=== PATIENT | male | born 1950 | race Caucasian/White ===

== ENCOUNTER 2019-04-10 03:18 | Inpatient (IN) | payer MEDICARE, OTHER ==
[~2019-04-10] VITALS: Ht 175.3 cm; Wt 90.3 kg
[2019-04-10] MEDS ORDERED: GLUCOPHAGE1000 MG PO (03:36)
[2019-04-10] MEDS ORDERED: EFFEXOR XR150 MG PO (03:37)
[2019-04-10] MEDS ORDERED: PRAVACHOL40 MG PO (03:37)
[2019-04-10] MEDS ORDERED: VENLAFAXINE HCL75 MG PO (03:37)
[2019-04-10] MEDS ORDERED: GLIPIZIDE10 MG PO (03:37)
--- NOTE | 2019-04-10 07:45 | NUR ---
PATIENT SHIFT REPORT RECEIVED FROM F[employer]ADE BULLDOZER OPERATOR RN. PT IS RESTING IN BED AT THIS TIME. PTS EYES ARE SWELLED SHUT. PT CAN SEE IF HE USES HIS FINGERS TO OPEN HIS EYES. PT HAS MINIMAL PAIN WHILE RESTING,BUT GOES UP TO ABOUT A 5 WITH MOVEMENT. MD ZAMARRIPA HERE PUTTING ORDERS IN. WILL CONTINUE TO CLOSELY MONITOR.
--- NOTE | 2019-04-10 09:00 | NUR ---
PT ASSESSMENT COMPLETED. MEDICATIONS ADMINISTERED. BREATH SOUNDS CLEAR. BILATERAL CHEST TUBES IN PLACE AT -20 SUCTION. MINIMAL BLOOD IN CHEST TUB, NO AIR LEAK NOTED. PT HAS CREPITUS FROM CHEST, SHOULDERS, BILATERAL ARMS, HANDS NECK, AND FACE THAT PATIENT ARRIVED FROM THE ED WITH. PT STATES PAIN IS ABOUT A 2/10 WHILE AT REST AND SHOOTS UP TO A 6/10 WITH MOVEMENT. GAVE PATIENT A BUTTON CALL LIGHT TO USE EASIER SINCE HIS EYES ARE SWOLLEN SHUT. ASSISTED PATIENT TO STAND AT THE BEDSIDE AND USE URINAL. PT DENIES AY OTHER NEEDS AT THIS TIME. WILL COTNINUE TO CLOSELY MONITOR.
--- NOTE | 2019-04-10 10:30 | NUR ---
PT RESTING IN BED LISTENING TO THE TV. PT HAS CALL LIGHT IN REACH. PT DENIES ANY OTHER NEEDS AT THIS TIME. WILL CONTINUE TO CLOSELY MONITOR.
--- NOTE | 2019-04-10 11:12 | NUR ---
ASSISTED PATIENT UP TO THE CHAIR. PT REQUESTED A COOL COMPRESS FOR HIS EYES. PT RECLINING IN THE CHAIR AT THIS TIME, PT TOLERATED AMBULATION WELL. WILL CONTINUE TO CLOSELY MONITOR.
--- NOTE | 2019-04-10 11:45 | NUR ---
PT HAVING INCREASED PAIN. ADMINISTERED PRN DILAUDID. PT REMAINS IN THE CHAIR AT THIS TIME. WILL CONTINUE TO CLOSELY MONITOR.
--- NOTE | 2019-04-10 12:28 | NUR ---
PT ASSISTED BACK TO BED. GAVE PRN NORCO FOR PAIN 04/02. WILL MONITOR EFFECTIVENESS. PT STATES "I AM JUST MISERABLE, FEELS LIKE THE DAYS ARE JUST DRAGGIN ON". PT HAS LUNCH HE IS WORKING ON AT THIS TIME. WILL CONTINUE TO CLOSELY MONITOR.
[2019-04-10] MEDS ORDERED: GLUCOTROL XL10 MG PO (13:14)
[2019-04-10] MEDS ORDERED: VENLAFAXINE HCL75 M1 PO ×2 (13:15→13:16)
--- NOTE | 2019-04-10 14:00 | NUR ---
CALLED MD ZAMARRIPA D/T PATIENTS PAIN CONTROL. PER MD ZAMARRIPA CHANGE PATIENTS PAIN MEDICATION TO NORCO 10MG/325 AND GIVE 1-2 TABS WITH ORDERS TO GIVE ONE TAB AT THIS TIME. UPDATED THAT DILAUDID MADE PATIENT FEEL LOOPY, DC DILAUDID AND MAY GIVE MORPHINE 2-6MG FOR BREAKTHROUGH/SEVERES PAIN. WILL CALL MD ZAMARRIPA BACK IF PAIN CONTROL IS NOT IMPROVED WITH NEW ORDERS. NO OTHER ISSUES AT THIS TIME. WILL CONTINUE TO CLOSELY MONITOR.
--- NOTE | 2019-04-10 14:43 | NUR ---
ASSISTED PATIENT UP TO THE CHAIR WITH 2 PERSON ASSIST TO MANAGE TUBES AND CORDS. PATIENT IS STEADY ON HIS FEET. PLACED PILLOWS UNDER PATIENTS ARMS. CHANGED BED OUT FOR A DIFFERENT BED. PATIENT STATES BED IS HURTING HIS BACK AND HE HAS A DIFFICULT TIME MOVING IN THE BED. CALL LIGHT IN HAND. PATIENT EYES REMAIN SWOLLEN SHUT. PATIENT IS FRUSTRATED BECAUSE HE CANT GET COMFORTABLE AND HE CANT SEE. PATIENT WANTS TO TALK TO HIS , BUT STAFF ARE UNABLE TO CONTACT HER. CONTACTED PATIENTS SON, WHO IS WORKING ON TRYING TO CONTACT HIS MOM. WILL CONTINUE TO CLOSELY MONITOR. PATIENT IS LISTENING TO THE TV AT THIS TIME.
--- NOTE | 2019-04-10 15:55 | NUR ---
PATIENTS AT BEDSIDE AND UPDATED REGUARDING PLAN OF CARE AND HOW PATIENT IS DOING. PATIENT DENIES ANY OTHER NEEDS AT THIS TIME. WILL CONTINUE TO CLOSELY MONITOR. PATIENT IS NOW RESTING AT THIS TIME.
--- NOTE | 2019-04-10 16:15 | NUR ---
ASSISTED PATIENT BACK TO BED. PT TOELRATED WELL. PT NOW RESTING IN BED. PT DENIES NEEDING TO URINATE AT THIS TIME. ASSESSMENT COMPLETED AND NO CHANGES NOTED FROM PRIOR ASSESSMENTS. CALL LIGHT IN REACH. AT BEDSIDE. CHEST TUBE SITES CHECKED, WITH NO ISSUES NOTED. WILL CONTINUE TO CLOSELY MONITOR.
--- NOTE | 2019-04-10 17:53 | NUR ---
ASSISTED PATIENT BACK UP TO THE CHAIR. PT TOLERATED MUCH BETTER THIS EVENING. PATIENTS PAIN IS 4/10. PATIENT STATES PAIN IS DOING MUCH BETTER. WIPPED PATIENTS EYES AND PATIENTS EYES ARE OPEN A LITTLE BIT MORE THIS EVENING. CALL LIGHT IN REACH. FAMILY AT THE BEDSIDE. DINNER FINISHED. WILL CONTINUE TO CLOSELY MONITOR.
--- NOTE | 2019-04-10 19:27 | NUR ---
PT REPORT RECIEVED, CAER ASSUMED AT THIS TIME. PT SITTING UP IN RECLINER AT THIS TIME. IN ROOM. ASSISTED PT FROM CHAIR TO BED. PT IN 8 PAIN AT THIS TIME. PAIN MEDICATION PROVIDED. DISCUSSED PLAN OF CARE WITH PT AND AT THIS TIME. CALL LIGHT WITHIN REACH. IV FLUIDS INFUSING. NO FURTHER NEEDS AT THIS TIME.
--- NOTE | 2019-04-10 22:12 | NUR ---
PT ASLEEP IN BED. BREATHING EVEN AND UNLABORED.
--- NOTE | 2019-04-10 22:40 | NUR ---
RESPONDED TO PATIENT CALL LIGHT, PT REPORTED INCREASED PAIN. ASSISTED PT TO RECLINER, PAIN MEDICATION GIVEN. CALL LIGHT WITHIN REACH. NO FURTHER REQUESTS AT THIS TIME.
--- NOTE | 2019-04-11 00:10 | NUR ---
PT CONFUSED, TRYING TO STAND WITHOUT ASSISTANCE. STATES " I FEEL LIKE I AM WASHING DISHES" ALSO REPORTS FEELING "ITCHY EVERYWHERE. REPORTS PAIN IS STILL 8/10 ON RIGHT SIDE OF CHEST. DR. ZAMARRIPA CALLED, ORDERS RECIEVED AT THIS TIME.
--- NOTE | 2019-04-11 00:59 | NUR ---
PT IS RESTING IN STRETCHER, STATES HIS ITCHING AND ANXIETY HAVE DECREASED AT THIS TIME.
--- NOTE | 2019-04-11 02:31 | NUR ---
PT RESTING WITH EYES CLOSED, BREATHING EVEN AND UNLABORED. SATURATIONS AT 95 PERCENT ON 4 L NC.
--- NOTE | 2019-04-11 04:30 | NUR ---
IN TO DO PATIENT ASSESSMENT. PT HAD INCONTINENT EPISODE IN BED. ASSISTED TO A STANDING POSITION. PAIN INCREASED TO 8/10 WITH POSITION CHANGE. RIGHT CHEST TUBE DRESSING COVERED IN A MODERATE AMOUNT OF BLOOD. CHANGED AT THIS TIME. PT HAS WHEEZING OVER ALL LUNG LESLIE, WORSE IN THE RIGHT. BACK IN BED, CALL LIGHT WITHIN REACH. NO FURTHER NEEDS A THIS TIME.
--- NOTE | 2019-04-11 06:02 | NUR ---
PT SLEEPING, BREATHING EVEN AND UNLABORED. CALL LIGHT WITHIN REACH.
--- NOTE | 2019-04-11 07:41 | NUR ---
PT SITTING AT THE EDGE OF THE BED AT THIS TIME, CHEST TUBES INPLACE AND O2 AT 4'S NC. PT IS RESTLESS AT THIS TIME. ALLOWING HIM TO SIT AND MOVE ABOUT WITH LIMITED SPACE AT THIS TIME. PT IS TOLERATING THE HOSPITAL ROUTINE AT HIS TIME. EYES REMAIN SLOWWEN, BUT IS ABLE TO HOLD OPEN ONE EYE AT THE TIME AND IS ABLE TO SEE AT TIMES FOR A FEW MINUTES.
--- NOTE | 2019-04-11 08:10 | NUR ---
SPOKE WITH PATIENT IN ROOM. PATIENT SITTING AT SIDE OF BED EATING BREAKFAST. EYES VERY SWOLLEN, PATIENT STATES HE CAN SEE A LITTLE OUT OF LEFT EYE. IS ABLE TO FEED SELF. PATIENT LIVES WITH , IS RETIRED AND NORMALLY DRIVES. PATIENT INTENDS TO RETURN HOME AT DISCHARGE. PATIENT HAS NO DME AT HOME. DISCUSSED DISCHARGE AND POSSIBLE NEEDS. DISCUSSED HE WILL NEED FOLLOWUP WITH PCP AND HE STATES HIS WILL BE ABLE TO DRIVE. PATIENT OPEN TO ANY HELP NEEDED AT DISCHARGE. DISCUSSED FOR HIM TO UNDERSTAND ALL DIAGNOSIS, TESTS, MEDICATIONS AND SIDE EFFECTS. HE STATES HE UNDERSTANDS SO FAR. QUESTIONS ANSWERED. WILL CONTINUE TO FOLLOW.
--- NOTE | 2019-04-11 08:33 | NUR ---
PT BACK TO BED AT THIS TIME, TWO PERSONA ASSISTANCE NEEDED. PT STOOD AT THE SIDE OF THE BED BEFORE GETTING BACK INTO BED. LINE CHANGED AT THIS TIME. PT HAS DENTURES CLEANED AND BACK INTO HIS MOUTH.
--- NOTE | 2019-04-11 10:28 | NUR ---
PT SITTING AT THE EDGE OF THE BED AT THIS TIME, MEDICATED WITH 10MG/325MG NORCO PO AT THIS TIME. PT IS TAKING PO WELL. SWELLING IN FACE STILL REMAINS THE SAME.
--- NOTE | 2019-04-11 10:45 | NUR ---
PT BACK TO BED AT THIS TIME, CHEST TUBES X2 INPLACE AND DRESSING INTACK. PT ON O2 VIA NC WITH SPO2 95%. SIDERAILS X 2 AND CALL LIGHT WITHIN REACH.
--- NOTE | 2019-04-11 11:20 | NUR ---
FAMILY INTO VISIT AT THIS TIME. PT MOVED TO SITTING AT THE BEDSIDE.
--- NOTE | 2019-04-11 11:39 | NUR ---
PT UP TO THE CHAIR AT THIS TIME, PT USED THE URINAL AND VOIDED 300MLS OF LAWRENCE URINE. FAMILY REMAIN AT THE BEDSIDE.
--- NOTE | 2019-04-11 12:49 | NUR ---
PT BACK TO BED AT THIS TIME, TURNED TO HIS RIGHT SIDE SOME WITH PILLOWS BEHIND HIS BACK AND UNDER IS ARMS. REMAINS AT THE BEDSIDE.
--- NOTE | 2019-04-11 13:52 | NUR ---
PT AWARE OF MY PRESENCE, AT BS. PTS' EYES SWOLLEN MOSTLY SHUT DUE TO CONDITION HE IS FIGHTING. LUNGS SLOWLY IMPROVING. SEEMED VERY INVOLVED IN TV SHOW. EXTENDED A BLESSING, WILL FOLLOW NEEDED
--- NOTE | 2019-04-11 13:54 | NUR ---
PT PLACED ON TELE#1 DUE TO HE WILL BE TRASFERED TO THE M/S UNIT THIS AFTERNOON. MEDICATED WITH 10MG/325 NORCO AT THIS TIME.
--- NOTE | 2019-04-11 14:00 | NUR ---
REPORT GIVEN TO KHALIDA MICHELLE FACE TO FACE IN ROOM 128. ALL QUESTIONS ANSWERED AT THIS ITME. PT TRANSFERED TO ROOM 110 IN HIS BED WITH ALL PERSONAL BELONGINGS. PT PRESENT DURING THIS TRANSFERED. PT WAS PLACED ON TELE#1.
--- NOTE | 2019-04-11 14:40 | NUR ---
IT DOES NOT APPEAR THAT ANY OUTPUT HAS BEEN DOCUMENTED ON PATIENT SO I AM DOCUMENTING WHAT HE HAS OF NOW AND IT WILL BE HIS TOTAL OUTPUT FOR CHEST TUBES. HIS RIGHT CHEST TUBE HAD 54 AND HIS LEFT CHEST TUBE HAD 46 OUT.
--- NOTE | 2019-04-11 14:59 | NUR ---
REPORT RECEIVED AT BEDSIDE IN CCU, PT TRANSFERRED VIA BED TO [facility], WELL TOLERATED. REMAINS AT BEDSIDE. HAND HELD CALL LIGHT IN PT LAP, HE IS ABLE TO INDICATE WHICH BUTTON TO USE FOR NURSE NOTIFICATION. RESTING IN BED COOL CLOTH TO EYES. PT DENIES PAIN, STATES "IT REALLY ONLY HURTS WITH MOVEMENT AND DEEP BREATHS". EDUCATION PROVIDED. PRESSURE RELIEF MEASURES DISCUSSED WELL PT DEMONSTRATES ABILITY TO SHIFT IN HIS BED AND RELIEVE PRESSURE TO ONE SIDE, AGREES TO DO THIS FREQUENTLY. ICE WATER IN REACH OTHER NEEDS OR QUESTIONS DENIED
--- NOTE | 2019-04-11 15:35 | NUR ---
SPOKE TO PT ABOUT PLANS TO INCREASE ACTIVITY, UP IN THE CHAIR AND AMBULATING THE TINEO HE AGREES UP TO THE CHAIR WOULD BE GOOD. SBA TO RECLINER PT STATES HE IS COMFORTABLE AND WILL SIT UP FOR AWHILE. CHEST TUBES SECURE IN PLACE, TUBING AT BED LEVEL, NO S/S OF COMPROMISE. 02 AT 2LPM SATS 97%
--- NOTE | 2019-04-11 17:46 | NUR ---
PT TRANSFERRED FROM CCU AFTER LUNCH. VERY PAINFUL RIGHT SIDE RECEIVES TORDOL AND NORCO. [facility]. TELE #! SINUS. O2 2L PER NC SATS RUNNING MID 90'S PULSE OX IN PLACE. BILAT CHEST TUBES IN PLACE. CLIENT A BIT IMPULSIVE WILL ASK TO ASSIST HIM UP INSTEAD OF CALLING RN PULLING IV OUT
--- NOTE | 2019-04-11 19:00 | NUR ---
CHARGE NURSE REPORT FROM LUZ ELENA. PT IN BED, IN CHAIR. NO NEEDS.
--- NOTE | 2019-04-11 19:05 | NUR ---
BEDSIDE REPORT RECEIVED FROM VIVIANA GAXIOLA. SPO2 94%, HR 88 ON 2L OXYGEN BY NC. SCDS ON. PT DENIES PAIN AT REST, STATES "ALMOST NO PAIN, UNLESS I MOVE A LOT". HR NSR ON TELE 1. CALL LIGHT IN REACH. AT BEDSIDE. NO REQUESTS AT THIS TIME.
--- NOTE | 2019-04-11 19:47 | NUR ---
TO NURSES STATION. 1PA WITH FWW TO TRANSFER TO CHAIR. CHEST TUBES TO WALL SUCTION. CALL LIGHT IN REACH. DIET COKE PROVIDED. NO ADDITIONAL REQUESTS. IVF INFUSING WNL ORDERED.
--- NOTE | 2019-04-11 20:48 | NUR ---
PT ASSESSMENT COMPLETE. RT MACIEJ IN ROOM. CREPITUS NOTED BUE, BACK, CHEST. PT ABLE TO OPEN EYES MORE THAN PREVIOUS SHIFT PER PT. EDEMA NOTED ON FACE. PT ORIENTED X 4. SBA W FWW AND 2PA WITH CHEST TUBES TO RESTROOM FOR VOIDE. PT TOLERATED WELL. ORAL CARE COMPLETE. BACK TO CHAIR. CHAIR ALARM ON.
--- NOTE | 2019-04-11 21:19 | NUR ---
PT ATTEMPTING TO STAND FROM CHAIR. SBA, FWW WITH [address]UB[address], NO CONTINUOUS BUBBLING NOTING. BACK TO BED. SCDS ON. IVF INFUSING WNL ORDERED. 2L OXYGEN BY NC IN PLACE. BED ALARM ON. CALL LIGHT ON CHEST.
--- NOTE | 2019-04-11 22:45 | NUR ---
CHECKED ON PT. RESTING IN BED WITH EYES CLOSED. BREATHING EQUAL AND NON-LABORED. SPO2 WNL ON 2L OXYGEN BY NC. SCDS ON. CHEST TUBES IN PLACE BILATERALLY. LIGHTS OFF IN ROOM. BED ALARM ON.
--- NOTE | 2019-04-11 23:34 | NUR ---
PATIENT IS RESTING IN BED WITH EYES CLOSED, RR 17. CALL LIGHT IN REACH.
--- NOTE | 2019-04-12 00:33 | NUR ---
PT RESTING IN BED ASLEEP. PT REMOVED OXYGEN, SPO2 88%, OXYGEN REAPPLIED. PT AWAKENS TO VOICE THEN BACK TO SLEEP. SCDS ON. CHEST TUBES IN PLACE TO SUCTION, NO CONT. BUBBLING NOTED. IVF INFUSING WNL. BED ALARM ON. CALL LIGHT IN REACH.
--- NOTE | 2019-04-12 03:35 | NUR ---
PT CALLING OUT, PRN PAIN MEDICATION ADMINISTERED FOR 8/10 RIGHT RIB PAIN. 2PA SBA WITH FWW TO CHAIR. CREPITUS PALPATED BILATERALLY ARMS. NO CREPITUS ON CHEST. EDEMA IMPROVED IN FACE, NECK. CRACKLES AUSCULTATED BILATERALLY UPPER LOBES. SPO2 WNL ON 2L OXYGEN BY NC. CHEST TUBES INTACT TO WALL SUCTION, NO CONT. BUBBLING NOTED. RT MACIEJ IN ROOM TO ASSESS PT. CALL LIGHT IN REACH. CHAIR ALARM ON. ICE WATER PROVIDED.
--- NOTE | 2019-04-12 04:47 | NUR ---
CALL LIGHT ANSWERED. SBA TO RESTROOM W FWW AND BACK TO CHAIR. UNMEASURED VOID ON FLOOR CLEANED. VSS. IVF INFUSING WNL ORDERED. CHEST TUBES IN PLACE TO WALL SUCTION. CHAIR ALARM ON. CALL LIGHT IN LAP.
--- NOTE | 2019-04-12 04:54 | NUR ---
V/S AND I&O TAKEN AND RECORDED. 2 PA HELPED PATIENT TO THE BATHROOM AND BACK TO CHAIR. CHAIR ALARM ON. CALL LIGHT IN REACH.
--- NOTE | 2019-04-12 05:39 | NUR ---
2 PA PATIENT TRANSFER FROM CHAIR TO BED. SCD AND CPOX ARE BACK ON. BED ALARM ON. CALL LIGHT IN REACH.
--- NOTE | 2019-04-12 05:42 | NUR ---
CALL LIGHT ANSWERED. 2PA WITH FWW TO TRANSFER BACK TO BED FROM CHAIR. SCDS ON. IVF INFUSING WNL ORDERED. CHEST TUBES IN PLACE. CALL LIGHT IN REACH. BED ALARM ON.
--- NOTE | 2019-04-12 05:54 | NUR ---
CREPITUS IMPROVED THIS SHIFT, NOTED IN BUE, LEFT CHEST TUBE SITE. CRACKLES AUSCULTATED BILATERALLY UPPER LOBES. SATURATIONS WNL ON 2L OXYGEN BY NC THROUGHOUT SHIFT. CHEST TUBES BILATERALLY TO WALL SUCTION, NO CONT. BUBBLING NOTED. AMBULATING WITH 2 PERSON SBA FOR TUBE MANAGEMENT WITH FWW TO RESTROOM FOR QS VOIDS. SCDS IN PLACE WHILE IN BED. UP TO CHAIR THIS SHIFT. IVF INFUSING WNL ORDERED. PRN NORCO, TORADOL FOR PAIN MANAGEMENT. IMPULSIVE AT TIMES, BED ALARM AND CHAIR ALARM IN PLACE. ALERT AND ORIENTED X 4. 40 MLS SS DRAINGE FROM LEFT CHEST TUBE, 9 ML SS DRAINAGE RIGHT CHEST TUBE.
--- NOTE | 2019-04-12 06:52 | NUR ---
MD IN ROOM AFTER CHEST X RAY ASSESSING PT. PRN TORADOL ADMINISTERED FOR 7/10 PAIN IN RIBS. CALL LIGHT IN REACH. BED ALARM ON. IVF RATE TITRATED PER ORDERS INFUSING WNL. SCDS ON.
--- NOTE | 2019-04-12 07:36 | NUR ---
PT SLEEPING AT THIS TIME, RESP EVEN AND NON LABORED. BILAT CHEST TUBES INTACT, PATENT AND DRAINING APPROP; BOTH ARE TO WALL SUCTION AT 90MMHG. DRESSINGS ARE INTACT TO CHEST WALL, NO NOTABLE DRAINAGE AT DRESSING SITE(s). IV INFUSING TKO @30ML/HR. CREPITUS NOTED TO LEFT/RIGHT ARMS. CPOX INTACT, 02 SAT LEVEL IS 96% ON 2 L OXYGEN. PT SLEEPING SOUNDLY, NO NOTABLE DISTRESS AT THIS TIME. BED ALARM INTACT. CLOSE TO RN STATION FOR FREQUENT MONITORING.
--- NOTE | 2019-04-12 08:57 | NUR ---
PT RESTING IN BED WITH EYES CLOSED, RESPONDS TO VERBAL STIMULI. PT STATES PAIN IN RIGHT CHEST, NONPRODUCTIVE COUGH NOTED. PT ENCOURAGED TO BRACE ABD WITH PILLOW. PT SLOWLY EATING BREAKFAST. BED ALARM IN PLACE, CALL LIGHT IN REACH.
--- NOTE | 2019-04-12 09:16 | NUR ---
Overheard staff stating pt choking on food. Went in to see pt immediately, pt found choking for several seconds, then pt able to independently clear own airwar. Pt spit eggs out from mouth. Pt transitioned to chair, breathing returned to resp even and non labored. Oxygen saturation 97% on ra post choking event. Dr. Hernandez aware of choking event. New order obtained to change diet to soft, bite size diet.
--- NOTE | 2019-04-12 11:04 | NUR ---
PT RESTING IN BED WATCHING TV WITH FAMILY AT BEDSIDE. BED ALARM IN PLACE, CALL LIGHT WITHIN REACH. PT HAS 2 L NC, SATS 95% WITH CONT PULSE OXIMETER IN PLACE.
--- NOTE | 2019-04-12 11:27 | NUR ---
Patient was transfered to Chair this morning after Breakfast, around 11 am the patient wanted back in bed 3PA to get him back into bed. Call light in reach, Fresh water given.
--- NOTE | 2019-04-12 13:29 | NUR ---
PT RESTING IN BED, WATCHING TV WITH HIS AT . HE RESPONDS TO VOICE COMMANDS WELL, AND SAYS HE IS FEELING BETTER. HIS ALWAYS SEEMS TO BE TUNED INTO TV OR HER PHONE, MAKING IT DIFFICULT TO CONNECT WITH HER. GAVE A BLESSING, LEFT A G.POST IN RM. WILL FOLLOW NEEDED.
--- NOTE | 2019-04-12 15:57 | NUR ---
SEE NURSE NOTE FROM THIS AM, PROVIDER AWARE OF PT CHOKING ON BREAKFAST DIET REASSESSED. PT TOLERATING SOFT BITE SIZED MEALS.
--- NOTE | 2019-04-12 15:58 | NUR ---
PT RESTING IN BEDSIDE CHAIR. PT DROWSY, AROUSES TO VERBAL STIMULATION. PT STATES PAIN "COMFORTABLE." FAMILY AT BEDSIDE, CALL LIGHT WITHIN REACH.
--- NOTE | 2019-04-12 17:59 | NUR ---
ADMIN NORCO 10/325MG PO FOR REPORTS OF 7/10 LEFT RIB PAIN.
--- NOTE | 2019-04-12 18:22 | NUR ---
BILAT CHEST TUBES TO WALL SUCTION. LEFT SIDE HAS AIR LEAK +2 BUBBLING, DR. ZAMARRIPA AWARE. GENERALIZED CREPITUS NOTED. TELE 1, NSR. PT CHOKED ON SCRAMBLED EGGS THIS AM, MONITOR FOR ASPIRATION RISK. DIET CHANGED TO SOFT BITE SIZED, TOLERATING WELL. LR@30/HR TKO. 2 L O2 NC, CPOX. CBG'S BID, ORAL MEDICATION. PAIN WELL MANAGED TODAY.
--- NOTE | 2019-04-12 19:10 | NUR ---
BEDSIDE REPORT RECEIVED FROM VIVIANA GIBBS. PT RESTING IN BED. SPO2 96% ON 2L OXYGEN BY NC. IVF INFUSING WNL. SCDS ON. BED ALARM IN PLACE. CHEST TUBES IN PLACE TO WALL SUCTION. NO CONT. BUBBLING NOTED. NO REQUESTS AT THIS TIME.
--- NOTE | 2019-04-12 20:14 | NUR ---
PT ASSESSMENT COMPLETE. CREPITUS BILATERALLY ARMS HANDS, FACE, NECK. CRACKLES AUSCULTATED BILATERALLY LOWER LUNGS, COUGHING AND IS USE DEMONSTRATED BY PT, LUNGS CLEARING WITH SOME CREPITUS AUSCULTATED. CHEST TUBES TO 90 MMHG, NO CONT. BUBBLING NOTED, SMALL AMT BUBBLING LEFT CHEST TUBE WITH INSPIRATION. UNCHANGED FROM PREVIOUS SHIFT. PT RATES PAIN 3/10 IN BACK ON RIGHT SIDE. DECLINES SCDS AT THIS TIME. 2L OXYGEN BY AK IN PLACE. CBG 357 NOTIFIED. ORDERS FOR DIABETIC CONSULT AND BLOOD SUGAR CHECKS [facility] REPEATED BACK. EDUCATION PROVIDED TO PT REGARDING DIET. IV FLUSHED WNL. IVF INFUSING ORDERED. BED ALARM ON. CALL LIGHT IN REACH. PT DENIES TOILETING NEEDS.
--- NOTE | 2019-04-12 20:42 | NUR ---
CALL LIGHT ANSWERED. 2PA WITH RT MACIEJ TO RESTROOM FOR VOID. ORAL CARE COMPLETE BY PT. PT SHAVED FACE. BACK IN BED. CALL LIGHT IN REACH. BED ALARM ON. IVF INFUSING WNL ORDERED. LIGHTS OFF IN ROOM. 2L OXYGEN BY NC IN PLACE. CPOX ON. TELE [address] HR 85 NSR.
--- NOTE | 2019-04-12 21:50 | NUR ---
CALL LIGHT ANSWERED. 2PA FROM CHAIR TO BED. CHEST TUBES TO WALL SUCTION IN PLACE. PT RATES PAIN 5/10 W AMBULATION. PRN PAIN MEDICATION ADMINISTERED. PT DECLINES SCDS. IVF INFUSING WNL ORDERED. CPOX IN PLACE, SPO2 WNL ON 2L O2 BY NC. BED ALARM ON.
--- NOTE | 2019-04-12 21:50 | NUR ---
2 PA PATIENT BACK TO BED.
--- NOTE | 2019-04-13 00:08 | NUR ---
CHECKED ON PT. RESTING IN BED WITH EYES CLOSED. AWAKENS TO VOICE. OXYGEN REAPPLIED, SPO2 WNL ON 2L OXYGEN BY NC. BED ALARM ON.
--- NOTE | 2019-04-13 01:15 | NUR ---
CALL LIGHT ANSWERED. 2PA WITH FWW TO RESTROOM FOR VOID AND BACK TO BED. ASSESSMENT COMPLETE. PT RATES PAIN 6/10 "DULL ACHE" BILATERALLY IN RIBS. PRN TORADOL AND TYLENOL ADMINISTERED. CREPITUS PALPATED UPPER BODY, FACE, ARMS BILATERALLY. FINE CRACKLES THROUGHOUT LUNG LOBES. PT ENCOURAGED TO DEEP BREATHE. NO NEW DRAINAGE AT CHEST TUBE INSERTION SITES. CHEST TUBES TO WALL SUCTION. DIET COKE PROVIDED. CALL LIGHT IN REACH. BED ALARM ON.
--- NOTE | 2019-04-13 02:36 | NUR ---
CALL LIGHT ANSWERED, PT UNABLE TO SLEEP D/T PAIN IN LEFT SIDE OF CHEST, ABD. PRN NORCO ADMINSITERED AT THIS TIME, RATES PAIN 7/10 "DULL ACHING PAIN". CALL LIGHT IN REACH. BED ALARM ON.
--- NOTE | 2019-04-13 03:45 | NUR ---
PT AMBULATING LAPS AROUND HALLWAY WITH 1PA MAKENZIE MUELLER. CHEST TUBES IN PLACE. PT TOLERATING WELL.
--- NOTE | 2019-04-13 03:57 | NUR ---
PT BACK IN ROOM FROM WALK. UP TO CHAIR. IV FLUSHED, IVF INFUSING WNL ORDERED. MODERATE SEROUS DRAINAGE FROM LEFT CHEST TUBE NOTED. TAPE REINFORCED ON LEFT CHEST TUBING, NO CONT. BUBBLING NOTED, TO 90 MMHG WALL SUCTION. 2L OXYGEN BY NC IN PLACE. CHAIR ALARM ON. CALL LIGHT IN LAP.
--- NOTE | 2019-04-13 03:59 | NUR ---
ASSISTED TO THE BATHROOM. ACCOMPANIED TO WALK AROUND NURSES STATION X2. PATIENT IS BACK IN CHAIR. ALARM ON.
--- NOTE | 2019-04-13 04:44 | NUR ---
PT CALLING OUT ASKING FOR PAIN PILL. IN PT ROOM, PT RATES PAIN 3/10. EDUCATED ON PRN PAIN MEDICATION SCHEDULE. DENIES NEED FOR PAIN MEDICATIONS STATES "I'M JUST BORED AND DON'T WANT TO GET BEHIND". PT GIVEN NEWSPAPER AND MAGAZINE. CHEST TUBES IN PLACE TO WALL SUCTION. SPO2 WNL ON RA. CALL LIGHT IN REACH. CHAIR ALARM ON.
--- NOTE | 2019-04-13 05:10 | NUR ---
CHAIR ALARM SOUDING, PT REQUESTING TO STAND TO STRETCH LEGS. STATES "I'M GOING CRAZY IN HERE". SBA TO STAND WITH FWW. VSS AT THIS TIME. BACK IN CHAIR AFTER STANDING FOR A FEW MINUTES. READING NEWSPAPER. NO REQUESTS AT THIS TIME. ALARM IN PLACE. CALL LIGHT IN REACH.
--- NOTE | 2019-04-13 05:11 | NUR ---
CHEST TUBES IN PLACE TO WALL SUCTION. MODERATE SS DRAINAGE FROM LEFT TUBE INSERTION SITE. AMBULATING IN HALLWAY WITH SBA FWW. 2PA OUT OF BED WITH TUBES. GENERALIZED CREPITUS IN FACE, UPPER CHEST, BILATERALLY ARMS, FACIAL EDEMA IMPROVED. PAIN CONTROLLED W PRN NORCO, TYLENOL, AND TORADOL. IVF INFUSING WNL ORDERED. VOIDING QS. CBG 357, MD AWARE. DIETARY CONSULT FOR DIABETIC EDUCATION. CBGS [facility]. 32 MLS L CHEST TUBE, 18 R CHEST TUBE. BED, CHAIR ALARMS. 2L OXYGEN, CPOX. TELE 1 NSR.
--- NOTE | 2019-04-13 07:23 | NUR ---
PRN PAIN MEDICATION ADMINSITERED FOR "INCREASING PAIN ON BOTH SIDES". PT RATES PAIN 3/10. SITTING UP IN CHAIR AWAKE. HANDOFF REPORT GIVEN TO RNS BERNIE AND MILA. BREAKFAST ORDER PLACED. CALL LIGHT IN REACH. CHAIR ALARM ON.
--- NOTE | 2019-04-13 07:55 | NUR ---
PATIENT RESTING IN BED. ICE WATER GIVEN. CALL LIGHT WITHIN REACH. NO OTHER NEEDS AT THIS TIME
--- NOTE | 2019-04-13 08:20 | NUR ---
DR. ZAMARRIPA IN PT ROOM TO ASSESS AND REMOVE LEFT CHEST TUBE. 2 RNS IN TO ASSIST MD. PT TOLERATES PROCEDURE WELL.
--- NOTE | 2019-04-13 08:22 | NUR ---
PT TOLERATED DR. ZAMARRIPA REMOVAL OF LEFT CHEST WELL. OXYGEN SATURATION 96% ON RA AT THIS TIME, RESP EVEN AND NON LABORED. CALL LIGHT WITHIN REACH. NO NEEDS AT THIS TIME.
--- NOTE | 2019-04-13 08:52 | NUR ---
Chest to placed to water seal at this time, per doc order.
--- NOTE | 2019-04-13 10:08 | NUR ---
PATIENT SITTING UP IN BED. VITAL SIGNS AND I&O DONE. PATIENT GOES TO USE BATHROOM. PATIENT USES A WALKER. TWO PERSON ASSISTING. GOWN CHANGED. PATIENT BACKS TO BED. CALL LIGHT WITHIN REACH. NO OTHER NEEDS AT THIS TIME
--- NOTE | 2019-04-13 13:14 | NUR ---
PT SITTING UP IN BED WATCHING TV. SWELLING DOWN ENOUGH TO SEE PT'S EYES. HE IS EXCITED HE CAN SEE AGAIN! PT DID NOT SLEEP AT ALL DURING THE NIGHT. HAD LIGHTS TURNED DOWN, DRAPES PULLED AND DOOR CLOSED TO BLOCK SOME NOISE. EXTENDED A BLESSING AND WILL FOLLOW NEEDED
--- NOTE | 2019-04-13 13:37 | NUR ---
PATIENT RESTING IN BED. IN ROOM. VITAL SIGNS AND I&O DONE. CALL LIGHT WITHIN REACH. NO OTHER NEEDS AT THIS TIME
--- NOTE | 2019-04-13 15:28 | NUR ---
PT SITTING IN BEDSIDE CHAIR WITH LEGS ELEVATED. PT STATES PAIN IN BILAT CHEST, RATES 6/10; MEDICATED FOR PAIN. RESP EVEN AND UNLABORED, THOUGH SLIGHLTY SHALLOW. SATS 96% ON 2L NC. CALL LIGHT WITHIN REACH.
[2019-04-13] MEDS ORDERED: NOVOLIN 70100 UNIT/1 SUB-Q (15:52)
--- NOTE | 2019-04-13 16:00 | NUR ---
Medications reconciled using pharmacy records and patient interview
--- NOTE | 2019-04-13 16:27 | NUR ---
Pt tolerated walk in hallway well; 1PA with walker.
--- NOTE | 2019-04-13 17:36 | NUR ---
PATIENT SITTING UP IN CHAIR. VITAL SIGNS AND I&O DONE. CALL LIGHT WITHIN REACH. NO OTHER NEEDS AT THIS TIME
--- NOTE | 2019-04-13 18:05 | NUR ---
Pt forgetful at times. 2l oxygen. Right sided chest to water seal. TKO LR @ 30ml/hr. 1PA with walker; walked today and did well. VS stable. CPOX intact. Bed and Chair alarm intact at all times. Improving per Dr. Hernandez. Crepitus noted to arms/chest/face.
--- NOTE | 2019-04-13 19:27 | NUR ---
BEDSIDE REPORT RECEIVED FROM VIVIANA GIBBS. PT RESTING IN BED AWAKE, RIGHT CHEST TUBE TO WATER SEAL. FLUCTUATING WITH DEEP BREATHING, NO BUBBLING NOTED IN WATER CHAMBER. SPO2 97% ON 2L OXYGEN BY NC. HR 83. CPOX IN PLACE. IVF INFUSING WNL ORDERED. CALL LIGHT IN REACH.
--- NOTE | 2019-04-13 19:59 | NUR ---
ROUNDED CHARGE. PATIENT IS RESTING IN BED. PATIENT ASSISTED TO REPOSITION. PATIENT DENIES ANY COMMENTS, QUESTIONS OR CONCERNS. NO NEEDS NOTED. CALL LIGHT IN REACH.
--- NOTE | 2019-04-13 20:31 | NUR ---
PT ASSESSMENT COMPLETE. PT RATES PAIN 5/10 IN RIGHT RIBS, "DULL ACHE". PRN NORCO X 1 ADMINSITERED. 1PA TO RESTROOM FOR VOID AND BACK TO BED. CBG 220. CREPITUS NOTED BUE, CHEST, FACE, NECK. FINE CRACKLES BILATERALLY UPPER LOBES, CRACKLES BILATERALLY BASES. PT DEMONSTRATES IS USE. CALL LIGHT IN REACH. SPO2 WNL ON 2L OXYGEN BY NC. CPOX IN PLACE. BED ALARM ON.
--- NOTE | 2019-04-13 21:15 | NUR ---
PT REQUESTING RN IN ROOM. STATES FEELING LIKE HE NEEDS TO GO HOME FOR THE NIGHT "GETTING REALLY AMPED UP AND WORRIED HE MIGHT DO SOMETHING". SUICIDE ASSESSMENT COMPLETE, PT DENIES SUICIDAL IDEATION. AGREES NOT TO HARM SELF WHILE IN HOSPITAL. PT STATES HE HAS FELT THIS WAY BEFORE. PHONE CALL TO , STATES SHE WILL COME STAY WITH HIM. PT REQUESTING MEDICATION TO HELP HIM "JUST BE KNOCKED OUT". PT VERY ANXIOUS, FIDGETING IN CHAIR. CHAIR ALARM ALARMING. PHONED, ORDER FOR PRN MEDICATION UPDATED IN EMAR, REPEATED BACK.
--- NOTE | 2019-04-13 21:35 | NUR ---
NOW PRESENT IN ROOM. 1PA TO BED FROM CHAIR. PRN ATIVAN ADMINSITERED. PT STATES "IT FEELS GOOD TO RELAX". BED ALARM ON. IVF INFUSING WNL. CHEST TUBE IN PLACE. LIGHTS OFF IN ROOM. SPO2 WNL ON 2L OXYGEN BY NC.
--- NOTE | 2019-04-13 22:55 | NUR ---
PT RESTING IN BED. APPEARS TO BE SLEEPING, SNORING. SPO2 WNL ON 2L OXYGEN BY NC. AT BEDSIDE. WARM BLANKETS PROVIDED TO . BED ALARM ON.
--- NOTE | 2019-04-14 00:55 | NUR ---
BED ALARM SOUNDING. PT ATTEMPTING TO GET OUT OF BED, RATES PAIN 8/10 IN RIGHT SIDE OF CHEST. PRN MEDICATIONS ADMINISTERED. SBA TO RESTROOM FOR VOID AND BACK TO BED. BED ALARM IN PLACE. AT BEDSIDE.
--- NOTE | 2019-04-14 02:42 | NUR ---
PT RESTING IN BED WITH EYES CLOSED. 2L OXYGEN BY NC IN PLACE, SPO2 WNL. BREATHING UNLABORED, EQUAL CHEST RISE BILATERALLY.
--- NOTE | 2019-04-14 06:16 | NUR ---
MORNING ASSESSMENT COMPLETE. PT SLEEPING, AWAKENS TO VOICE. CREPITUS UNCHANGED, NOTED UPPER CHEST, BILATERALLY ARMS, FACE, NECK. FINE CRACKLES IN LUNG LOBES. CHEST TUBE TO WATER SEAL. BED ALARM ON.
--- NOTE | 2019-04-14 06:40 | NUR ---
ASSISTED DR ZAMARRIPA AT THE BEDSIDE TO REMOVE CHEST TUBE. DR ZAMARRIPA REMOVED CHEST TUBE AND PLACED DRESSING. PATIENT IS NOW ON RA AND CPOX READINGS ARE WNL. PATIENT EDUCATED ON LEAVING DRESSING IN PLACE FOR X4 DAYS PATIENT AND VERBALIZE UNDERSTANDING. NO NEEDS NOTED. CALL LIGHT IN REACH.
--- NOTE | 2019-04-14 06:48 | NUR ---
PT ANXIOUS THIS SHIFT, PRN ATIVAN X 1. AT BEDSIDE. CHEST TUBE REMOVED BY MD IN MORNING HOURS. PT ON ROOM AIR. 1PA TO RESTROOM WITH FWW FOR QS VOIDS. PRN NORCO FOR PAIN CONTROL. FOLLOW UP CHEST X-RAY PLANNED FOR AFTERNOON. POSSIBLE D/C HOME.
--- NOTE | 2019-04-14 07:15 | NUR ---
PT SITTING UP IN CHAIR, ALERT AND ORIENTED AND APPEARS TO BE IN NO ACUTE DISTRESS. RESPIRATIONS EVEN AND UNLABORED. CALL LIGHT AND H2O IN REACH. PT EDUCATED ON I.S. USE AND VERBALIZED UNDERSTANDING. BREAKFAST MENUE GIVEN AND PHONE/PERSONAL BELONGINGS IN REACH. IV SALINE LOCKED.
--- NOTE | 2019-04-14 08:00 | NUR ---
PT RESTING IN SEMI FOWLERS POSITION IN BED, ALERT AND DENIES SOB, DIZZINESS OR CP BUT DOES REPORT TOLERABLE LEVEL OF RIB PAIN. ASSESSMENT COMPLETED. CALL LIGHT AND H2O IN REACH. PT DENIES NEEDS/CONCERNS. DENIES NEED FOR PAIN MEDICATION AT THIS TIME.
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
--- NOTE | 2019-04-14 09:01 | NUR ---
PT ASSISTED TO SIT AT BEDSIDE TO VOID PER HIS REQUEST. PT VOIDS SMALL AMOUNT OF CLEAR YELLOW URINE AND UP TO CHAIR PER PT REQUEST. CALL LIGHT AND H2O IN REACH. PT DENIES FURTHER NEEDS/CONCERNS. RR16 EVEN AND UNLABORED, CPOX 92% ON RA AND PT DENIES SOB.
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
--- NOTE | 2019-04-14 11:25 | NUR ---
PT ASSSITED UP TO RESTROOM WITH SBA AND FWW. PT TOLERATED AMBULATION WELL. PT BACK TO CHAIR AND CALL LIGHT AND H2O IN REACH. PT DENIES SOB, STATES PAIN IS TOELRABLE AND VOICED READINESS TO DISCHARGE TODAY IF POSSIBLE. PT APPEARS TO BE IN NO ACUTE DISTRESS, RR16, CPOX READS 93% ON RA.
[2019-04-14] MEDS ORDERED: NORCO 10-325 T1 EACH PO (12:34)
[2019-04-14] MEDS ORDERED: ACETAMINOPHEN650 M1 PO (12:35)
[2019-04-14] MEDS ORDERED: VENTOLIN HFA18 GM (12:36)
--- NOTE | 2019-04-14 12:53 | NUR ---
PT UP TO SHOWER WITH SBA FROM AID. PT APPEARS TO BE IN NO ACUTE DISTRESS
== END 2019-04-14 13:47 | disposition home or self-care (01) | DRG 200 ==
LOC: ED 03:18 → MS 05:12 → CCU 05:12 → MS 04-11 14:15
PROVIDERS: ADMIT Colon & Rectal Surgery
PROC: 0W9B30Z Drainage of Left Pleural Cavity with Drainage Device, Percutaneous Approach (ICD-10-PCS; principal; 2019-04-10)
PROC: 0W9930Z Drainage of Right Pleural Cavity with Drainage Device, Percutaneous Approach (ICD-10-PCS; 2019-04-10)
DX: S27.0XXA Traumatic pneumothorax, initial encounter (principal); S22.41XA Multiple fractures of ribs, right side, initial encounter for closed fracture; T79.7XXA Traumatic subcutaneous emphysema, initial encounter; E11.9 Type 2 diabetes mellitus without complications; F32.9 Major depressive disorder, single episode, unspecified; V86.56XA Driver of dirt bike or motor/cross bike injured in nontraffic accident, initial encounter; Y92.828 Other wilderness area as the place of occurrence of the external cause; Z79.84 Long term (current) use of oral hypoglycemic drugs; Z79.899 Other long term (current) drug therapy
CPT/HCPCS: 32551; 36415; 70450; 71045; 71260; 72125; 74022; 74177; 80053; 82150; 82550; 83690; 83735; 84100; 85025; 86850; 86900; 86901; 94762; 99285-25; 99406; G0480; J1170; J1200; J1644; J1885; J2060; J2270; J2405; J7030; J7120